=== PATIENT | female | born 1950 | race Caucasian/White ===

== ENCOUNTER → 2019-04-25 | Day surgery (SDC) | payer MEDICARE, BC ==
[~2019-04-25] MED LIST: Lactated Ringers 1,000 ML IV SCH; Propofol 200 MG/20 ML SDV IV ONE
[2019-04-25 12:02] VITALS: BP 127/61; PULSE 67
--- NOTE | 2019-04-25 15:29 | OR ---
DATE OF OPERATION: 04/25/2019 PREOPERATIVE DIAGNOSIS: SCREENING COLONOSCOPY. POSTOPERATIVE DIAGNOSIS: SCREENING COLONOSCOPY. SURGEON: Logan Gudino MD PROCEDURE: FULL-LENGTH COLONOSCOPY. ANESTHESIA: MAC. COMPLICATIONS: None. SPECIMEN: None. FINDINGS: 1. Full-length colonoscopy. 2. [id number] sigmoid diverticulosis. 3. Perianal skin tags with hemorrhoid disease. RECOMMENDATIONS: Routine colonoscopy every 10 years. INDICATIONS: The patient was seen for routine screen as it had been 10 years since her last scope. DESCRIPTION OF PROCEDURE: The patient was prepped and draped, placed in the left lateral decubitus position. A lubricated Olympus colonoscope was inserted and advanced to the cecum. We were able to directly visualize the ileocecal valve, palpate, and visualize the light in the right lower quadrant. Bowel prep was excellent. Upon withdrawal, the entire right transverse and descending colons were completely benign. [id number] diverticular disease in the sigmoid. No other polyps, masses, ulceration, or bleeding sites. No vascular abnormalities or signs of colitis. The rectal vault was benign. Retroflexion showed some perianal skin tags and hemorrhoidal disease, otherwise negative. Air was suctioned, scope removed without complication. MEENA/AGUS /[id number]
== END ==
LOC: CC.SDS 08:26
PROVIDERS: ATTEND Family Medicine
DX: Z12.11 Encounter for screening for malignant neoplasm of colon (principal); K57.30 Diverticulosis of large intestine without perforation or abscess without bleeding; K64.4 Residual hemorrhoidal skin tags; K64.9 Unspecified hemorrhoids; K21.9 Gastro-esophageal reflux disease without esophagitis; I48.91 Unspecified atrial fibrillation; E78.5 Hyperlipidemia, unspecified; I10 Essential (primary) hypertension; M19.90 Unspecified osteoarthritis, unspecified site; Z79.82 Long term (current) use of aspirin; Z79.899 Other long term (current) drug therapy; Z79.01 Long term (current) use of anticoagulants
CPT/HCPCS: G0121; J2704; J7120

== ENCOUNTER 2019-05-14 13:56 | Observation (INO) | payer MEDICARE, BC ==
[2019-05-14] MEDS ORDERED: Sodium Chloride 0.9% 10 ML Syringe FLUSH PRN (14:30)
[2019-05-14] MEDS ORDERED: Acetaminophen 325 MG Tab PO PRN (14:30)
[2019-05-14 14:54] LABS: CHLORIDE,CL 102 mEq/L (98-106); SODIUM,NA 138 mEq/L (136-145)
[2019-05-14] MEDS: Diltiazem 120 MG Cap.CD PO SCH (15:04)
[2019-05-14] MEDS ORDERED: traMADol 50 MG Tab PO PRN (15:12)
[2019-05-14] MEDS ORDERED: Betamethasone Dipropionate/Clotrimazole 0.05-1% Crm 15 GM Tube TOP PRN (15:12)
[2019-05-14] MEDS ORDERED: buPROPion 150 MG Tab.ER PO SCH (20:00)
[2019-05-14] MEDS ORDERED: traZODone 50 MG Tab PO SCH (20:00)
[2019-05-14] MEDS ORDERED: Aspirin 81 MG Tab.EC PO SCH (20:00)
[2019-05-14] MEDS: Apixaban 5 MG Tab PO SCH ×2 (22:04→22:57)
[2019-05-14] MEDS: Acetaminophen 500 MG Tab PO SCH (22:09)
[2019-05-14] MEDS: Metoprolol Tartrate 50 MG Tab PO SCH (22:09)
[2019-05-15] MEDS: Acetaminophen 500 MG Tab PO SCH (07:32)
[2019-05-15] MEDS: Diltiazem 120 MG Cap.CD PO SCH (07:32)
[2019-05-15 07:35] VITALS: BP 123/68; PULSE 68
[2019-05-15] MEDS ORDERED: Sertraline 25 MG Tab PO SCH (08:00)
[2019-05-15] MEDS ORDERED: Pantoprazole 40 MG Tab.CR PO SCH (08:00)
[2019-05-15] MEDS ORDERED: Non-Formulary Medication 1 Each (Exemestane [Exemestane] 25 MG) PO SCH (08:00)
[2019-05-15] MEDS: Apixaban 5 MG Tab PO SCH (08:12)
[2019-05-15] MEDS: Metoprolol Tartrate 50 MG Tab PO SCH (08:13)
--- NOTE | 2019-05-15 09:28 | PCM.DCSUM1 ---
Discharge Summary - Hospital Course Free Text/Narrative:: pt was admitted with A-fib with a RVR, was started on Cardizem which controlled her rate, with ambulation pts rate has been controlled.no c/o cp or sob, no calf pain redness or swelling, no other sx, advised "I feel better now" Diagnosis: Stroke: No - Discharge Data Discharge Date: 05/15/19 Discharge Disposition: Home, Self-Care 01 Condition: Good - Referral to Home Health Primary Care Physician: Brody Cruz PA-C - Discharge Diagnosis/Problem(s) (1) Atrial fibrillation with rapid ventricular response SNOMED Code(s): 941805556372509 ICD Code: I48.91 - UNSPECIFIED ATRIAL FIBRILLATION Status: Acute Priority : High Current Visit: Yes - Patient Instructions Diet: Heart Healthy Diet Activity: As Tolerated Driving: May Drive Today Showering/Bathing: May Shower Other/Special Instructions: rest. cardizem 1 x a day. continue all of your current medications. follow up in the clinic this coming week. return to the ER sooner if worse or problems - Discharge Plan *PRESCRIPTION DRUG MONITORING PROGRAM REVIEWED*: Not Applicable *COPY OF PRESCRIPTION DRUG MONITORING REPORT IN PATIENT GIGI: Not Applicable Prescriptions/Med Rec: Diltiazem [Cardizem CD] 120 mg PO DAILY 30 Days #30 cap.cd Home Medications: Home Meds Metoprolol Tartrate [Lopressor] 50 mg PO BID 08/04/13 [History] Pantoprazole Sodium 40 mg PO DAILY 08/04/13 [History] buPROPion [buPROPion XL] 300 mg PO BEDTIME 08/04/13 [History] Aspirin [Low Dose Aspirin EC] 81 mg PO BEDTIME 04/26/14 [History] Cholecalciferol (Vitamin D3) [Vitamin D3] 2,000 unit PO BID 04/26/14 [History] traZODone HCl [Trazodone HCl] 50 mg PO BEDTIME 04/26/14 [History] Apixaban [Eliquis] 5 mg PO BID 01/16/18 [History] Calcium Carb/D3/Magnesium/Zinc [Benoit Mag Zinc + D3] 1 each PO BID 01/16/18 [ History] Fish Oil/[place]-3 Fatty Acids [Fish Oil 1,000 MG] 1 cap PO DAILY 01/16/18 [ History] Sertraline HCl 50 mg PO DAILY 01/16/18 [History] traMADol HCl [Ultram] 50 - 100 mg PO Q6H PRN 01/16/18 [History] Clotrimazole/Betamethasone Dip [Lotrisone Cream] 1 applic TP BID PRN 04/23/19 [ History] Diclofenac Sodium [Voltaren 1% Gel] 1 applic TP QID PRN 04/23/19 [History] Exemestane 25 mg PO DAILY 04/23/19 [History] Diltiazem [Cardizem CD] 120 mg PO DAILY 30 Days #30 cap.cd 05/15/19 [Rx] Oxygen Therapy Mode: Room Air Patient Handouts: Atrial Fibrillation, [id number] - Discharge Summary/Plan Comment DC Time >30 min.: No Discharge Summary/Plan Comment: will dc home A-Fib now has a controlled rate, will continue cardizem, rx has been sent to pts pharmacy, will have pt f/u with pcp this week and return to ER prn. will eliminate caffeine from diet - Patient Data Vitals - Most Recent: Last Vital Signs Temp 37.1 C 05/15/19 08:00 Pulse 68 05/15/19 07:32 Resp 18 05/15/19 08:00 BP 123/68 05/15/19 08:00 Pulse Ox 99 05/15/19 08:00 Weight - Most Recent: 83.552 kg Lab Results - Last 24 hrs: Laboratory Results - last 24 hr 05/14/19 05/14/19 05/14/19 Range/Units 14:22 14:22 14:22 WBC 4.5 L (5.0-10.0) 10^3/uL RBC 4.28 (4.00-5.50) 10^6/uL Hgb 13.4 (12.0-16.0) g/dL Hct 39.1 (37.0-47.0) % MCV 91.4 (82.0-94.0) fL MCH 31.3 (27.0-32.0) pg MCHC 34.3 (33.0-38.0) g/dL RDW Coeff of Mick 12.9 (11.0-15.0) % Plt Count 187 (150-400) 10^3/uL Neut % (Auto) 54.2 (35-85) % Lymph % (Auto) 29.5 (10-55) % [place] % (Auto) 10.8 (0-16) % Eos % (Auto) 4.8 (0-5) % Baso % (Auto) 0.7 (0-3) % Neut # (Auto) 2.46 (1.80-7.00) 10^3/uL Lymph # (Auto) 1.34 (1.00-4.80) 10^3/uL [place] # (Auto) 0.49 (0.00-0.80) 10^3/uL Eos # (Auto) 0.22 (0.00-0.45) 10^3/uL Baso # (Auto) 0.03 10^3/uL PT 10.1 (9.7-12.3) SEC INR 0.98 (0.92-1.18) Sodium 138 (136-145) mEq/L Potassium 4.2 (3.5-5.0) mEq/L Chloride 102 (98-106) mEq/L Carbon Dioxide 25 (21-32) mmol/L BUN 21 H (7-18) mg/dL Creatinine 0.8 (0.6-1.0) mg/dL Est Cr Clr Drug Dosing TNP Estimated GFR (MDRD) > 60 (>=60) mL/min Glucose 100 H (75-99) mg/dL Calcium 9.5 (8.4-10.1) mg/dL Creatine Kinase 62 (21-215) U/L Troponin I < 0.017 (0.00-0.06) ng/mL Urine Color (YELLOW) Urine Appearance (CLEAR) Urine pH (4.5-8.0) Ur Specific [place] (1.003-1.020) Urine Protein (NEGATIVE) mg/dL Urine Glucose (UA) (NEGATIVE) mg/dL Urine Ketones (NEGATIVE) mg/dL Urine Occult Blood (NEGATIVE) Urine Nitrite (NEGATIVE) Urine Bilirubin (NEGATIVE) Urine Urobilinogen (0.2-1.0) EU/dL Ur Leukocyte Esterase (NEGATIVE) 05/14/19 Range/Units 14:22 WBC (5.0-10.0) 10^3/uL RBC (4.00-5.50) 10^6/uL Hgb (12.0-16.0) g/dL Hct (37.0-47.0) % MCV (82.0-94.0) fL MCH (27.0-32.0) pg MCHC (33.0-38.0) g/dL RDW Coeff of Mick (11.0-15.0) % Plt Count (150-400) 10^3/uL Neut % (Auto) (35-85) % Lymph % (Auto) (10-55) % [place] % (Auto) (0-16) % Eos % (Auto) (0-5) % Baso % (Auto) (0-3) % Neut # (Auto) (1.80-7.00) 10^3/uL Lymph # (Auto) (1.00-4.80) 10^3/uL [place] # (Auto) (0.00-0.80) 10^3/uL Eos # (Auto) (0.00-0.45) 10^3/uL Baso # (Auto) 10^3/uL PT (9.7-12.3) SEC INR (0.92-1.18) Sodium (136-145) mEq/L Potassium (3.5-5.0) mEq/L Chloride (98-106) mEq/L Carbon Dioxide (21-32) mmol/L BUN (7-18) mg/dL Creatinine (0.6-1.0) mg/dL Est Cr Clr Drug Dosing Estimated GFR (MDRD) (>=60) mL/min Glucose (75-99) mg/dL Calcium (8.4-10.1) mg/dL Creatine Kinase (21-215) U/L Troponin I (0.00-0.06) ng/mL Urine Color Yellow (YELLOW) Urine Appearance Clear (CLEAR) Urine pH 6.5 (4.5-8.0) Ur Specific [place] 1.010 (1.003-1.020) Urine Protein Negative (NEGATIVE) mg/dL Urine Glucose (UA) Negative (NEGATIVE) mg/dL Urine Ketones Negative (NEGATIVE) mg/dL Urine Occult Blood Negative (NEGATIVE) Urine Nitrite Negative (NEGATIVE) Urine Bilirubin Negative (NEGATIVE) Urine Urobilinogen 0.2 (0.2-1.0) EU/dL Ur Leukocyte Esterase Negative (NEGATIVE) Med Orders - Current: Current Medications Acetaminophen (Tylenol) 650 mg PO Q4H PRN PRN Reason: Pain (Mild 1-3)/fever Acetaminophen (Tylenol Extra Strength) 1,000 mg PO TID [facility] Last Admin: 05/15/19 07:32 Dose: 1,000 mg Apixaban (Eliquis) 5 mg PO BID [facility] Last Admin: 05/15/19 08:12 Dose: Not Given Aspirin (Halfprin) 81 mg PO BEDTIME [facility] Last Admin: 05/14/19 22:09 Dose: Not Given Betamethasone/Clotrimazole (Lotrisone) 0 gm TOP BID PRN PRN Reason: Rash Bupropion HCl (Wellbutrin Xl) 300 mg PO BEDTIME [facility] Last Admin: 05/14/19 22:10 Dose: Not Given Diltiazem HCl (Cardizem Cd) 120 mg PO DAILY [facility] Last Admin: 05/15/19 07:32 Dose: 120 mg Metoprolol Tartrate (Lopressor) 50 mg PO BID [facility] Last Admin: 05/15/19 08:13 Dose: Not Given Non-Formulary Medication (Exemestane [Exemestane]) 25 mg PO DAILY [facility] Pantoprazole Sodium (Protonix) 40 mg PO DAILY [facility] Last Admin: 05/15/19 08:13 Dose: Not Given Sertraline HCl (Zoloft) 50 mg PO DAILY [facility] Last Admin: 05/15/19 08:13 Dose: Not Given Sodium Chloride (Saline Flush) 10 ml FLUSH ASDIRECTED PRN PRN Reason: Keep Vein Open Tramadol HCl (Ultram) 50 - 100 mg PO Q6H PRN PRN Reason: Pain Trazodone HCl (Trazodone) 50 mg PO BEDTIME [facility] Last Admin: 05/14/19 22:09 Dose: Not Given
== END 2019-05-15 10:02 | disposition home or self-care (01) ==
LOC: CC.FCMC 13:56 → UNDOADMOB 14:05 → CC.MS 14:05
PROVIDERS: ADMIT Physician Assistant Medical; ATTEND Family Medicine
DX: I48.0 Paroxysmal atrial fibrillation (principal); I10 Essential (primary) hypertension; E78.5 Hyperlipidemia, unspecified; K21.9 Gastro-esophageal reflux disease without esophagitis; C50.919 Malignant neoplasm of unspecified site of unspecified female breast; F32.9 Major depressive disorder, single episode, unspecified; F41.9 Anxiety disorder, unspecified; G47.30 Sleep apnea, unspecified; G47.00 Insomnia, unspecified; M19.90 Unspecified osteoarthritis, unspecified site; Z79.82 Long term (current) use of aspirin; Z79.01 Long term (current) use of anticoagulants; Z79.899 Other long term (current) drug therapy; Z86.73 Personal history of transient ischemic attack (TIA), and cerebral infarction without residual deficits
CPT/HCPCS: 36415; 80048; 81003; 82550; 84484; 85025; 85610; 93005; A9270-GY; G0378

== ENCOUNTER 2019-05-23 09:30 | Emergency (ER) | payer OTHER, MEDICARE, BC ==
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
[2019-05-23 10:07] LABS: CHLORIDE,CL 101 mEq/L (98-106); SODIUM,NA 137 mEq/L (136-145)
[2019-05-23 10:41] VITALS: BP 146/84; PULSE 118
== END 2019-05-23 11:50 | disposition home or self-care (01) ==
LOC: CC.ED 09:30
DX: S80.02XA Contusion of left knee, initial encounter (principal); I10 Essential (primary) hypertension; Z79.899 Other long term (current) drug therapy; V89.2XXA Person injured in unspecified motor-vehicle accident, traffic, initial encounter
CPT/HCPCS: 36415; 70450; 71046; 72125; 72170; 73560-RT; 73590-LT; 80053; 82150; 83605; 85025; 85610; 99284-25

== ENCOUNTER 2021-06-04 07:42 | Observation (INO) | payer MEDICARE, BC ==
[2021-06-04] MEDS ORDERED: Ketorolac 30 MG/ML SDV IM ONE (08:37)
--- NOTE | 2021-06-04 09:19 | EDM.PDOC ---
ED HPI GENERAL MEDICAL PROBLEM - General Chief Complaint: General Stated Complaint: knee pain - right. Kneecap surgery on . Temp 100 at home. Time Seen by Provider: 06/04/21 08:20 Source of Information: Reports: Patient, RN History Limitations: Reports: No Limitations - History of Present Illness INITIAL COMMENTS - FREE TEXT/NARRATIVE: Right knee surgery . Painful even after two oxycodone pills. Onset: Other (last ) Duration: Constant, Getting Worse Location: Reports: Other (right knee) Front/Back Body Image: 1 - right knee Quality: Reports: Ache Severity: Moderate Improves with: Reports: None Worsens with: Reports: Movement Context: Reports: Other (surgery) Treatments PROJECT ADMIN: Reports: Other Medication(s) (oxycodone) Right Knee Pain Score (Numeric/FACES): 7 - Related Data Allergies Allergy/AdvReac Type Severity Reaction Status Date / Time No Known Allergies Allergy Verified 06/04/21 07:48 Home Meds: Home Meds Metoprolol Tartrate [Lopressor] 25 mg PO BID 08/04/13 [History] Pantoprazole Sodium 40 mg PO DAILY 08/04/13 [History] buPROPion [buPROPion XL] 150 mg PO BEDTIME 08/04/13 [History] Aspirin [Low Dose Aspirin EC] 81 mg PO BEDTIME 04/26/14 [History] Cholecalciferol (Vitamin D3) [Vitamin D3] 2,000 unit PO BID 04/26/14 [History] traZODone HCl [Trazodone HCl] 50 mg PO BEDTIME 04/26/14 [History] Apixaban [Eliquis] 5 mg PO BID 01/16/18 [History] Calcium Carb/D3/Magnesium/Zinc [Benoit Mag Zinc + D3] 1 each PO BID 01/16/18 [History] traMADol HCl [Ultram] 50 - 100 mg PO Q6H PRN 01/16/18 [History] Clotrimazole/Betamethasone Dip [Lotrisone Cream] 1 applic TP BID PRN 04/23/19 [History] Diclofenac Sodium [Voltaren 1% Gel] 1 applic TP QID PRN 04/23/19 [History] Exemestane 25 mg PO DAILY 04/23/19 [History] Acetaminophen 650 mg PO Q6H PRN 06/04/21 [History] Celecoxib [CeleBREX] 200 mg PO BID 06/04/21 [History] Flecainide [Tambocor] 50 mg PO Q12H 06/04/21 [History] Lutein/Zeaxanthin [Lutein-Zeaxanthin 20-1 mg Sfgl] 1 cap PO DAILY 06/04/21 [History] PARoxetine [Paxil] 20 mg PO DAILY 06/04/21 [History] Sennosides/Docusate Sodium [Senna-Docusate Sodium Tablet] 1 tab PO BID 06/04/21 [History] atorvaSTATin [Lipitor] 10 mg PO BEDTIME 06/04/21 [History] oxyCODONE 5 - 10 mg PO Q4H 06/04/21 [History] Past Medical History Cardiovascular History: Reports: Afib, Blood Clots/VTE/DVT, High Cholesterol, Hypertension Gastrointestinal History: Reports: GERD GEAR NICKER History: Reports: Other GEAR NICKER History: YEAST INF Musculoskeletal History: Reports: Arthritis Neurological History: Reports: CVA Psychiatric History: Reports: Anxiety, Depression Endocrine/Metabolic History: Reports: Vitamin D Deficiency Hematologic History: Reports: B12 Deficiency Oncologic (Cancer) History: Reports: Breast - Infectious Disease History Infectious Disease History: Reports: Other (See Below) Other Infectious Disease History: Staph infection in hand - Past Surgical History HEENT Surgical History: Reports: Naso-Sinus Surgery Female Surgical History: Reports: Section Musculoskeletal Surgical History: Reports: Knee Replacement Oncologic Surgical History: Reports: Biopsy of Breast, Lumpectomy Social & Family History - Family History Family Medical History: No Pertinent Family History - Caffeine Use Caffeine Use: Reports: Coffee - Living Situation & Occupation Living situation: Reports: , with Spouse Occupation: Employed ED ROS GENERAL - Review of Systems Review Of Systems: Comprehensive ROS is negative, except as noted in HPI. ED EXAM, GENERAL - Physical Exam Exam: See Below Exam Limited By: No Limitations (pain ROM R knee) General Appearance: Alert, Mild Distress Nose: Normal Mucosa, No Blood Throat/Mouth: Normal Voice, No Airway Compromise Head: Atraumatic, Normocephalic Neck: Supple Respiratory/Chest: No Respiratory Distress, Lungs Clear, Normal Breath Sounds Cardiovascular: Normal Peripheral Pulses, Regular Rate, Rhythm GI/Abdominal: Normal Bowel Sounds, Soft, Non-Tender, No Distention Extremities: Normal Capillary Refill, Leg Pain, Limited Range of Motion, Increased Warmth, Other (wartmth and redness medial aspect right knee) Neurological: Alert, Oriented, Normal Cognition Psychiatric: Normal Affect, Normal Mood, Tearful, Other (mildly anxious due to pain) Skin Exam: Warm, Dry, Increased Warmth (right knee), Wound/Incision (right knee - approximated well) Course - Vital Signs Last Recorded V/S: Last Vital Signs Temp 98 F 06/04/21 08:55 Pulse 87 06/04/21 08:55 Resp 18 06/04/21 08:55 BP 128/62 06/04/21 08:55 Pulse Ox 97 06/04/21 08:55 - Orders/Labs/Meds Orders: Active Orders 24 hr Category Date Time Status Knee 1V or 2V Rt [CR] Stat Exams 06/04/21 08:24 Taken Labs: Laboratory Tests 06/04/21 Range/Units 09:13 WBC 4.5 (4.0-11.0) 10^3/uL RBC 3.24 L (4.00-5.50) x10^6/uL Hgb 10.0 L (12.0-16.0) g/dL Hct 30.1 L (37.0-47.0) % MCV 92.9 (83.0-97.0) fL MCH 30.9 (27.0-32.0) pg MCHC 33.2 (32.0-36.0) g/dL RDW Coeff of Mick 12.8 (11.0-15.0) % Plt Count 134 L (150-400) 10^3/uL Immature Gran % (Auto) 0.2 (0.0-4.9) % Neut % (Auto) 68.6 (41-71) % Lymph % (Auto) 17.3 L (24-44) % Winkler % (Auto) 8.1 (0-10) % Eos % (Auto) 5.6 (0-6) % Baso % (Auto) 0.2 (0-1) % Neut # (Auto) 3.05 (1.80-8.00) x10^3/uL Lymph # (Auto) 0.77 (0.60-5.00) 10^3/uL Winkler # (Auto) 0.36 (0.00-1.50) 10^3/uL Eos # (Auto) 0.25 (0.00-1.50) 10^3/uL Baso # (Auto) 0.01 (0.00-0.50) 10^3/uL Immature Gran # (Auto) 0.01 (0.00-0.49) 10^3/uL Meds: Medications Discontinued Medications Generic Name Dose Route Start Last Admin Trade Name Freq PRN Reason Stop Dose Admin Ketorolac Tromethamine 30 mg 06/04/21 08:37 06/04/21 08:49 Ketorolac 30 Mg/Ml Sdv IM 06/04/21 08:38 30 mg ONETIME ONE Administration - Re-Assessments/Exams Free Text/Narrative Re-Assessment/Exam: 06/04/21 09:25 Responded favorably to ketorolac. Pain from 7 to 3. 06/04/21 14:44 Spoke with raj Mendez electron gun inspector at [facility]. Will admit to obs for now and she can f/u with surgeon on Sunday. Will admit for pain control and inability to perform ADLs. Will give IV ketorolac. Departure - Departure Time of Disposition: 13:30 Disposition: Refer to Observation Condition: Good Clinical Impression: Impaired mobility and ADLs Right knee pain Qualifiers: Chronicity: acute Qualified Code(s): M25.561 - Pain in right knee - Discharge Information Referrals: Logan Gudino MD [Primary Care Provider] - Forms: ED Department Discharge Sepsis Event Note (ED) - Evaluation Sepsis Screening Result: No Definite Risk - Focused Exam Vital Signs: Vital Signs Temp Pulse Resp BP Pulse Ox 06/04/21 08:55 98 F 87 18 128/62 97 - Problem List & Annotations (1) Impaired mobility and ADLs SNOMED Code(s): 886658265, 421411213 Code(s): Z74.09 - OTHER REDUCED MOBILITY; Z78.9 - OTHER SPECIFIED HEALTH STATUS Status: Acute Current Visit: Yes (2) Right knee pain SNOMED Code(s): 4709140221 Code(s): M25.561 - PAIN IN RIGHT KNEE Status: Acute Current Visit: Yes Qualifiers: Chronicity: acute Qualified Code(s): M25.561 - Pain in right knee - My Orders Last 24 Hours: My Active Orders 06/04/21 08:24 Knee 1V or 2V Rt [CR] Stat - Assessment/Plan Last 24 Hours: My Active Orders 06/04/21 08:24 Knee 1V or 2V Rt [CR] Stat
[2021-06-04] MEDS ORDERED: Metoprolol Tartrate 25 MG Tab PO SCH (15:15)
[2021-06-04] MEDS ORDERED: Sodium Chloride 0.9% 10 ML Syringe FLUSH PRN (16:33)
[2021-06-04] MEDS ORDERED: FLECAINIDE 50 MG PO SCH (16:33)
[2021-06-04] MEDS ORDERED: Ondansetron 4 MG Tab.DIS PO PRN (16:33)
[2021-06-04] MEDS ORDERED: Acetaminophen 325 MG Tab PO PRN (16:33)
[2021-06-04] MEDS: Ketorolac 30 MG/ML SDV IVPUSH PRN (17:01)
[2021-06-04] MEDS: Apixaban 5 MG Tab **OWN MED PO SCH (19:55)
[2021-06-04] MEDS: FLECAINIDE 50 MG PO SCH (19:56)
[2021-06-04] MEDS: Aspirin 81 MG Tab.EC PO SCH (19:56)
[2021-06-04] MEDS: atorvaSTATin 10 MG Tab **OWN MED PO SCH (19:56)
[2021-06-04] MEDS: Cholecalciferol (Vitamin D3) 25 MCG Tab PO SCH (19:57)
[2021-06-04] MEDS: traZODone 50 MG Tab **OWN MED PO SCH (19:57)
[2021-06-04] MEDS: Metoprolol Tartrate 25 MG Tab **OWN MED PO SCH (19:57)
[2021-06-04] MEDS: BUPROPION 150 MG PO SCH (19:58)
[2021-06-04] MEDS ORDERED: Calcium Carbonate/Magnesium Oxide/Zinc Oxide Tab PO SCH (20:00)
[2021-06-04] MEDS: oxyCODONE 5 MG Tab **OWN MED PO PRN (20:01)
[2021-06-05] MEDS: oxyCODONE 5 MG Tab **OWN MED PO PRN ×3 (03:22→18:04)
[2021-06-05] MEDS: Apixaban 5 MG Tab **OWN MED PO SCH ×2 (07:45→19:23)
[2021-06-05] MEDS: Calcium Carbonate/Magnesium Oxide/Zinc Oxide Tab PO SCH (07:45)
[2021-06-05] MEDS: [UNRECOGNIZED DRUG - OTHER] PO SCH (07:45)
[2021-06-05] MEDS: Metoprolol Tartrate 25 MG Tab **OWN MED PO SCH ×2 (07:46→19:25)
[2021-06-05] MEDS: FLECAINIDE 50 MG PO SCH ×2 (07:46→19:23)
[2021-06-05] MEDS: Cholecalciferol (Vitamin D3) 25 MCG Tab PO SCH ×2 (07:47→19:22)
[2021-06-05] MEDS: Pantoprazole 40 MG Tab.CR PO SCH (07:47)
[2021-06-05] MEDS: PAROXETINE 20 MG PO SCH (07:47)
[2021-06-05] MEDS: Ketorolac 30 MG/ML SDV IVPUSH PRN (08:46)
--- NOTE | 2021-06-05 10:39 | PCM.PN ---
- General Info Date of Service: 06/05/21 Admission Dx/Problem (Free Text): Right Knee post Op Pain Impaired Mobility Inability to Perform ADLs Subjective Update: Admitted yesterday through ER. The ortho manager loss prevention (Romana) was called yesterday and advised to f/u on Sunday with her surgeon. She states the IV ketorolac is really helpful. States does not think she can manage at home just yet. Functional Status: Reports: Pain Controlled, Tolerating Diet - Review of Systems General: Reports: No Symptoms HEENT: Reports: No Symptoms Pulmonary: Reports: No Symptoms Cardiovascular: Reports: No Symptoms Gastrointestinal: Reports: No Symptoms Genitourinary: Reports: No Symptoms Musculoskeletal: Reports: Leg Pain, Joint Pain (right knee pain) Skin: Reports: No Symptoms Neurological: Reports: No Symptoms Psychiatric: Reports: No Symptoms - Patient Data Vitals - Most Recent: Last Vital Signs Temp 97.6 F 06/05/21 07:48 Pulse 65 06/05/21 07:48 Resp 16 06/05/21 07:48 BP 129/58 L 06/05/21 07:48 Pulse Ox 95 06/05/21 07:48 Weight - Most Recent: 190 lb Med Orders - Current: Current Medications Acetaminophen (Acetaminophen 325 Mg Tab) 650 mg PO Q6H PRN PRN Reason: Pain Apixaban (Apixaban 5 Mg Tab Own Med) 5 mg PO BID [facility] Last Admin: 06/05/21 07:45 Dose: 5 mg Documented by: Aspirin (Aspirin 81 Mg Tab.Ec) 81 mg PO BEDTIME [facility] Last Admin: 06/04/21 19:56 Dose: 81 mg Documented by: Atorvastatin Calcium (Atorvastatin 10 Mg Tab Own Med) 10 mg PO BEDTIME [facility] Last Admin: 06/04/21 19:56 Dose: 10 mg Documented by: Bupropion HCl (Bupropion 150 Mg Tab.Er Own Med) 150 mg PO BEDTIME [facility] Last Admin: 06/04/21 19:58 Dose: 150 mg Documented by: Calcium/Magnesium/Zinc (Calcium Carbonate/Magnesium Oxide/Zinc Oxide Tab) 1 tab PO DAILY [facility] Last Admin: 06/05/21 07:45 Dose: 1 tab Documented by: Cholecalciferol (Cholecalciferol (Vitamin D3) 25 Mcg Tab) 50 mcg PO BID [facility] Last Admin: 06/05/21 07:47 Dose: 50 mcg Documented by: Ketorolac Tromethamine (Ketorolac 30 Mg/Ml Sdv) 30 mg IVPUSH Q8H PRN PRN Reason: Pain (moderate 4-6) Stop: 06/09/21 15:17 Last Admin: 06/05/21 08:46 Dose: 30 mg Documented by: Metoprolol Tartrate (Metoprolol Tartrate 25 Mg Tab Own Med) 25 mg PO [facility] Last Admin: 06/05/21 07:46 Dose: 25 mg Documented by: Exemastane 25 Mg (Own Med) 0 mg PO DAILY [facility] Last Admin: 06/05/21 07:45 Dose: 25 mg Documented by: Non-Formulary Medication (Lutein/Zeaxanthin [Lutein-Zeaxanthin 20-1 Mg Sfgl]) 1 cap PO DAILY [facility] Flecainide 50 Mg (Own Med) 0 mg PO [facility] Last Admin: 06/05/21 07:46 Dose: 50 mg Documented by: Ondansetron HCl (Ondansetron 4 Mg Tab.Dis) 4 mg PO Q4H PRN PRN Reason: nausea, able to take PO Oxycodone HCl (Oxycodone 5 Mg Tab Own Med) 5 mg PO Q4H PRN PRN Reason: Pain (severe 7-10) Last Admin: 06/05/21 07:55 Dose: 5 mg Documented by: Pantoprazole Sodium (Pantoprazole 40 Mg Tab.Cr) 40 mg PO DAILY [facility] Last Admin: 06/05/21 07:47 Dose: 40 mg Documented by: Paroxetine HCl (Paroxetine 20 Mg Tab Own Med) 20 mg PO DAILY [facility] Last Admin: 06/05/21 07:47 Dose: 20 mg Documented by: Senna/Docusate Sodium (Docusate Sodium/Sennosides 50-8.6 Mg Tab) 1 tab PO BID [facility] Last Admin: 06/05/21 07:47 Dose: 1 tab Documented by: Sodium Chloride (Sodium Chloride 0.9% 10 Ml Syringe) 10 ml FLUSH ASDIRECTED PRN PRN Reason: Keep Vein Open Trazodone HCl (Trazodone 50 Mg Tab Own Med) 50 mg PO BEDTIME [facility] Last Admin: 06/04/21 19:57 Dose: 50 mg Documented by: Discontinued Medications Calcium/Magnesium/Zinc (Calcium Carbonate/Magnesium Oxide/Zinc Oxide Tab) 1 tab PO BID [facility] Last Admin: 06/04/21 19:55 Dose: Not Given Documented by: Ketorolac Tromethamine (Ketorolac 30 Mg/Ml Sdv) 30 mg IM ONETIME ONE Stop: 06/04/21 08:38 Last Admin: 06/04/21 08:49 Dose: 30 mg Documented by: Metoprolol Tartrate (Metoprolol Tartrate 25 Mg Tab) 25 mg PO Q12H [facility] Last Admin: 06/04/21 16:39 Dose: Not Given Documented by: Flecainide 50 Mg (Own Med) 0 mg PO Q12H [facility] Last Admin: 06/04/21 18:50 Dose: Not Given Documented by: - Exam General: Alert, Oriented HEENT: EOMI, Mucous Membr. Moist/Sully Neck: Supple Lungs: Clear to Auscultation, Normal Respiratory Effort Cardiovascular: Regular Rate, Regular Rhythm GI/Abdominal Exam: Normal Bowel Sounds, Soft, Non-Tender, No Distention Back Exam: Normal Inspection, Full Range of Motion Extremities: Normal Capillary Refill, Limited Range of Motion, Increased Warmth, Other (Right knee with mild swelling, mld erythema, slighlty warmer than left) Skin: Warm, Dry Wound/Incisions: Healing Well, Dressing Dry and Intact, No Drainage Neurological: No New Focal Deficit Psy/Mental Status: Alert, Normal Affect, Normal Mood - Patient Data Result Diagrams: 06/04/21 09:13 Sepsis Event Note - Evaluation Sepsis Screening Result: No Definite Risk - Focused Exam Vital Signs: Vital Signs Temp Pulse Pulse Resp BP BP Pulse Ox 06/05/21 07:48 97.6 F 65 16 129/58 L 95 06/05/21 07:46 65 129/58 L 06/05/21 03:24 97.6 F 66 16 147/73 H 96 06/04/21 23:30 97.1 F 63 16 122/57 L 94 L - Problem List & Annotations (1) Impaired mobility and ADLs SNOMED Code(s): 091272316, 240349180 Code(s): Z74.09 - OTHER REDUCED MOBILITY; Z78.9 - OTHER SPECIFIED HEALTH STATUS Status: Acute Current Visit: Yes (2) Right knee pain SNOMED Code(s): 2268850796 Code(s): M25.561 - PAIN IN RIGHT KNEE Status: Acute Current Visit: Yes Qualifiers: Chronicity: acute Qualified Code(s): M25.561 - Pain in right knee - Problem List Review Problem List Initiated/Reviewed/Updated: Yes - My Orders Last 24 Hours: My Active Orders 06/04/21 15:10 Resuscitation Status Routine 06/04/21 15:17 Ketorolac [Toradol] 30 mg IVPUSH Q8H PRN 06/04/21 16:33 Acetaminophen [TylenoL] 650 mg PO Q6H PRN Ondansetron [Zofran ODT] 4 mg PO Q4H PRN Sodium Chloride 0.9% [Saline Flush] 10 ml FLUSH ASDIRECTED PRN oxyCODONE 5 mg PO Q4H PRN 06/04/21 16:33 Patient Status [ADT] Routine May Shower [RC] .PRN Oxygen Therapy [RC] .PRN Up With Assistance [RC] .PRN Vital Signs [RC] 0000,0400,0800,1200,1600,2000 Saline Lock Insert [OM.PC] Routine 06/04/21 Dinner Regular Diet [DIET] 06/04/21 20:00 Apixaban [Eliquis] 5 mg PO BID Aspirin [Halfprin] 81 mg PO BEDTIME Cholecalciferol (Vitamin D3) [Vitamin D3] 50 mcg PO BID Docusate Sodium/Sennosides [Senna Plus] 1 tab PO BID Flecainide [Tambocor] 0 mg PO 799,1999 Metoprolol Tartrate [Lopressor] 25 mg PO 0800,1999 atorvaSTATin [Lipitor] 10 mg PO BEDTIME buPROPion [Wellbutrin XL] 150 mg PO BEDTIME traZODone 50 mg PO BEDTIME 06/05/21 08:00 Calcium/Magnesium/Zinc [Calcium & Magnesium plus Zinc] 1 tab PO DAILY Exemestane [Exemestane] 0 mg PO DAILY Lutein/Zeaxanthin [Lutein-Zeaxanthin 20-1 mg Sfgl] 1 cap PO DAILY PARoxetine [Paxil] 20 mg PO DAILY Pantoprazole [ProTONIX] 40 mg PO DAILY - Plan Plan:: Continue IV ketorolac for now. Call surgeon's office in AM.
[2021-06-05] MEDS: traZODone 50 MG Tab **OWN MED PO SCH (19:22)
[2021-06-05] MEDS: BUPROPION 150 MG PO SCH (19:23)
[2021-06-05] MEDS: Aspirin 81 MG Tab.EC PO SCH (19:25)
[2021-06-05] MEDS: atorvaSTATin 10 MG Tab **OWN MED PO SCH (19:25)
[2021-06-06] MEDS: oxyCODONE 5 MG Tab **OWN MED PO PRN ×2 (00:51→08:30)
[2021-06-06] MEDS: Metoprolol Tartrate 25 MG Tab **OWN MED PO SCH (08:27)
[2021-06-06] MEDS: Apixaban 5 MG Tab **OWN MED PO SCH (08:28)
[2021-06-06] MEDS: PAROXETINE 20 MG PO SCH (08:28)
[2021-06-06] MEDS: FLECAINIDE 50 MG PO SCH (08:31)
[2021-06-06] MEDS: Pantoprazole 40 MG Tab.CR PO SCH (08:31)
[2021-06-06] MEDS: [UNRECOGNIZED DRUG - OTHER] PO SCH (08:33)
[2021-06-06] MEDS: Cholecalciferol (Vitamin D3) 25 MCG Tab PO SCH (08:35)
[2021-06-06] MEDS: Calcium Carbonate/Magnesium Oxide/Zinc Oxide Tab PO SCH (08:36)
[2021-06-06 13:42] VITALS: BP 140/60; PULSE 61
--- NOTE | 2021-06-06 14:24 | DISCH ---
ADMISSION DIAGNOSIS: Postoperative right knee pain. DISCHARGE DIAGNOSIS: 1. POSTOPERATIVE RIGHT KNEE PAIN. 2. CHRONIC ATRIAL FIBRILLATION WITH ANTICOAGULATION. 3. HYPERTENSION. 4. DEPRESSION. 5. CHRONIC GASTROESOPHAGEAL REFLUX DISEASE. HISTORY: The patient is a 71-year-old who had a partial revision of a knee replacement. I believe she had her patellar cap and a tibial pad replaced. This was done by Dr. Spencer at [facility], without any complication. She stayed overnight and was discharged the next day with pretty good pain control postoperatively and no postop complications. By the time she got home from her drive the next day, she started having more severe right knee pain, was unable to do the exercises she had been doing before and she presented to the emergency room for evaluation. She had no issues with her incision, increase in swelling, erythema or drainage from the wound. Emergency Room provider Haylie Joseph NP, evaluated the patient. Normal x-rays were reported and she was admitted for pain control. HOSPITAL COURSE: The patient was given IV Toradol while here and for the most part, she got wonderful relief. She has had no vital sign irregularities. The knee itself looks great. There is minimal swelling. There is no calor, erythema, and no drainage from the wound. I did discuss with Dr. Spencer the patient's presentation and he feels the pain likely came on quickly due to the nerve block wearing off the day after the surgery. I did explain this to the patient at length. We are going to keep her on oxycodone, told her to stay ahead of the pain using a 5 mg pill every 4-6 hours and she has followup with Ortho on the 16 of July. COMPLICATIONS: During her stay were none. CONSULTATIONS: PT. DISPOSITION: Discharged home. MEENA/AGUS /[id number]
[2021-06-07] MEDS ORDERED: Beta-Carotene (Vitamin A) w/Vitamin C & E plus Minerals Tab PO SCH (08:00)
== END 2021-06-06 15:10 | disposition home health service (06) ==
LOC: CC.ED 07:42 → CC.MS 13:00 → UNDOADMOB 13:00 → CC.MS 15:10
PROVIDERS: ADMIT Nurse Practitioner Family; ATTEND Family Medicine
DX: G89.18 Other acute postprocedural pain (principal); M25.561 Pain in right knee; R26.9 Unspecified abnormalities of gait and mobility; I48.91 Unspecified atrial fibrillation; E78.00 Pure hypercholesterolemia, unspecified; I10 Essential (primary) hypertension; F32.A Depression, unspecified; K21.9 Gastro-esophageal reflux disease without esophagitis; E55.9 Vitamin D deficiency, unspecified; Z86.73 Personal history of transient ischemic attack (TIA), and cerebral infarction without residual deficits; Z98.890 Other specified postprocedural states; Z79.899 Other long term (current) drug therapy; Z79.82 Long term (current) use of aspirin
CPT/HCPCS: 36415; 73560-RT; 85025; 96372; 96374; 96376; 97016-GP; 97110-GP; 97161-GP; 99284; A9270-GY; G0378; J1885

== ENCOUNTER 2021-06-27 17:24 | Emergency (ER) | payer MEDICARE, BC ==
--- NOTE | 2021-06-27 17:38 | EDM.PDOC ---
ED HPI GENERAL MEDICAL PROBLEM - General Chief Complaint: General Stated Complaint: Chest Tightness Time Seen by Provider: 06/27/21 17:25 Source of Information: Reports: Patient History Limitations: Reports: No Limitations - History of Present Illness INITIAL COMMENTS - FREE TEXT/NARRATIVE: This is a [id number]-old female patient that presents to the emergency department with complaints of chest tightness. Patient states that she began developing some tightness in her chest that started about noon today. Reports that she was recently seen in the emergency department last Sunday for atrial fibrillation. Has been following with fixer boarding room and has had an ablation as well as cardioversion. States that she is not always in atrial fibrillation and does tend to go in and out intermittently. Patient denies any recent illness. Denies any nausea, vomiting, diaphoresis, shortness of breath at this time. She states the pain radiates to her back. She reports taking her medications as prescribed and was started on flecainide by her fixer boarding room due to the ongoing issues with her atrial fibrillation. Onset: Today Onset Date: 06/27/21 Onset Time: 12:00 Location: Reports: Chest Quality: Reports: Other (Tightness) Improves with: Reports: None Worsens with: Reports: None Associated Symptoms: Denies: Cough, Diaphoresis, Fever/Chills, Nausea/Vomiting, Shortness of Breath mid chest Pain Score (Numeric/FACES): 6 - Related Data Allergies Allergy/AdvReac Type Severity Reaction Status Date / Time No Known Allergies Allergy Verified 06/27/21 17:35 Home Meds: Home Meds Metoprolol Tartrate [Lopressor] 25 mg PO BID 08/04/13 [History] Pantoprazole Sodium 40 mg PO DAILY 08/04/13 [History] buPROPion [buPROPion XL] 150 mg PO BEDTIME 08/04/13 [History] Aspirin [Low Dose Aspirin EC] 81 mg PO BEDTIME 04/26/14 [History] Cholecalciferol (Vitamin D3) [Vitamin D3] 2,000 unit PO BID 04/26/14 [History] traZODone HCl [Trazodone HCl] 50 mg PO BEDTIME 04/26/14 [History] Apixaban [Eliquis] 5 mg PO BID 01/16/18 [History] Calcium Carb/D3/Magnesium/Zinc [Benoit Mag Zinc + D3] 1 each PO DAILY 01/16/18 [History] traMADol HCl [Ultram] 50 - 100 mg PO Q6H PRN 01/16/18 [History] Clotrimazole/Betamethasone Dip [Lotrisone Cream] 1 applic TP BID PRN 04/23/19 [History] Diclofenac Sodium [Voltaren 1% Gel] 1 applic TP QID PRN 04/23/19 [History] Exemestane 25 mg PO DAILY 04/23/19 [History] Acetaminophen 650 mg PO Q6H PRN 06/04/21 [History] Flecainide [Tambocor] 50 mg PO Q12H 06/04/21 [History] Lutein/Zeaxanthin [Lutein-Zeaxanthin 20-1 mg Sfgl] 1 cap PO DAILY 06/04/21 [History] PARoxetine [Paxil] 20 mg PO DAILY 06/04/21 [History] atorvaSTATin [Lipitor] 10 mg PO BEDTIME 06/04/21 [History] Past Medical History Cardiovascular History: Reports: Afib, Blood Clots/VTE/DVT, High Cholesterol, Hypertension Gastrointestinal History: Reports: GERD PRINT COLOR MATCHER History: Reports: Other PRINT COLOR MATCHER History: YEAST INF Musculoskeletal History: Reports: Arthritis Neurological History: Reports: CVA Psychiatric History: Reports: Anxiety, Depression Endocrine/Metabolic History: Reports: Vitamin D Deficiency Hematologic History: Reports: B12 Deficiency Oncologic (Cancer) History: Reports: Breast - Infectious Disease History Infectious Disease History: Reports: Other (See Below) Other Infectious Disease History: Staph infection in hand - Past Surgical History HEENT Surgical History: Reports: Naso-Sinus Surgery Female Surgical History: Reports: Section Musculoskeletal Surgical History: Reports: Knee Replacement Oncologic Surgical History: Reports: Biopsy of Breast, Lumpectomy Social & Family History - Family History Family Medical History: No Pertinent Family History - Caffeine Use Caffeine Use: Reports: Coffee - Living Situation & Occupation Living situation: Reports: , with Spouse Occupation: Employed ED ROS GENERAL - Review of Systems Review Of Systems: See Below Constitutional: Denies: Fever, Chills, Malaise, Weakness HEENT: Reports: No Symptoms Respiratory: Denies: Shortness of Breath, Wheezing, Cough Cardiovascular: Reports: Chest Pain (Tightness and pressure) Endocrine: Reports: No Symptoms GI/Abdominal: Denies: Abdominal Pain, Nausea, Vomiting : Reports: No Symptoms Musculoskeletal: Reports: No Symptoms Skin: Denies: Cyanosis, Mottled Neurological: Denies: Confusion, Dizziness, Headache Psychiatric: Reports: No Symptoms Hematologic/Lymphatic: Reports: No Symptoms Immunologic: Reports: No Symptoms ED EXAM, GENERAL - Physical Exam Exam: See Below Exam Limited By: No Limitations General Appearance: Alert, WD/WN, Mild Distress Ears: Normal External Exam, Hearing Grossly Normal Nose: Normal Inspection, No Blood Throat/Mouth: Normal Inspection, Normal Lips, Normal Voice, No Airway Compromise Head: Atraumatic, Normocephalic Neck: Normal Inspection, Supple, Non-Tender Respiratory/Chest: No Respiratory Distress, Lungs Clear, Normal Breath Sounds Cardiovascular: Normal Peripheral Pulses, No Edema, Irregularly Irregular. No: Tachycardia GI/Abdominal: Normal Bowel Sounds, Soft, Non-Tender, No Distention (Female) Exam: Deferred Rectal (Female) Exam: Deferred Extremities: No Pedal Edema Neurological: Alert, Oriented, Normal Cognition Psychiatric: Normal Affect, Normal Mood Skin Exam: Warm, Dry, Intact Lymphatic: No Adenopathy #1 Interpretation EKG Date: 06/27/21 Time: 17:27 Rhythm: A-Fib Rate (Beats/Min): 97 Comparison: NA - No Prior EKG Course - Vital Signs Last Recorded V/S: Last Vital Signs Temp 97.8 F 06/27/21 17:32 Pulse 91 06/27/21 18:46 Resp 18 06/27/21 18:46 BP 129/74 06/27/21 18:46 Pulse Ox 97 06/27/21 18:46 - Orders/Labs/Meds Orders: Active Orders 24 hr Category Date Time Status Cardiac Monitoring [RC] . DIRECTED Care 06/27/21 18:37 Active Chest 2V [CR] Stat Exams 06/27/21 17:30 Taken PE Chest [Ang Chest] [CT] Stat Exams 06/27/21 18:09 Taken Labs: Laboratory Tests 06/27/21 06/27/21 06/27/21 Range/Units 17:40 17:40 17:40 WBC 5.1 (4.0-11.0) 10^3/uL RBC 3.88 L (4.00-5.50) x10^6/uL Hgb 11.7 L (12.0-16.0) g/dL Hct 35.4 L (37.0-47.0) % MCV 91.2 (83.0-97.0) fL MCH 30.2 (27.0-32.0) pg MCHC 33.1 (32.0-36.0) g/dL RDW Coeff of Mick 12.9 (11.0-15.0) % Plt Count 208 (150-400) 10^3/uL Immature Gran % (Auto) 0.2 (0.0-4.9) % Neut % (Auto) 52.9 (41-71) % Lymph % (Auto) 33.9 (24-44) % Sullivan % (Auto) 8.7 (0-10) % Eos % (Auto) 3.9 (0-6) % Baso % (Auto) 0.4 (0-1) % Neut # (Auto) 2.68 (1.80-8.00) x10^3/uL Lymph # (Auto) 1.72 (0.60-5.00) 10^3/uL Sullivan # (Auto) 0.44 (0.00-1.50) 10^3/uL Eos # (Auto) 0.20 (0.00-1.50) 10^3/uL Baso # (Auto) 0.02 (0.00-0.50) 10^3/uL Immature Gran # (Auto) 0.01 (0.00-0.49) 10^3/uL D-Dimer, Quantitative 3.44 H (0.00-0.50) Sodium 137 (136-145) mEq/L Potassium 4.3 (3.5-5.0) mEq/L Chloride 100 (98-106) mEq/L Carbon Dioxide 28 (21-32) mmol/L BUN 18 (7-18) mg/dL Creatinine 1.0 (0.6-1.0) mg/dL Est Cr Clr Drug Dosing 41.40 mL/min Estimated GFR (MDRD) 55 L (>=60) mL/min Glucose 105 H (75-99) mg/dL Calcium 9.1 (8.4-10.1) mg/dL Total Bilirubin 0.4 (0.0-1.0) mg/dL AST 19 (15-37) U/L ALT 33 (12-78) U/L Alkaline Phosphatase 131 H (46-116) U/L Troponin I High Sens 5.2 (<=51) pg/mL C-Reactive Protein < 0.2 L (0.2-0.8) mg/dL Total Protein 6.8 (6.4-8.2) g/dL Albumin 3.7 (3.4-5.0) g/dL 06/27/21 Range/Units 20:30 WBC (4.0-11.0) 10^3/uL RBC (4.00-5.50) x10^6/uL Hgb (12.0-16.0) g/dL Hct (37.0-47.0) % MCV (83.0-97.0) fL MCH (27.0-32.0) pg MCHC (32.0-36.0) g/dL RDW Coeff of Mick (11.0-15.0) % Plt Count (150-400) 10^3/uL Immature Gran % (Auto) (0.0-4.9) % Neut % (Auto) (41-71) % Lymph % (Auto) (24-44) % Sullivan % (Auto) (0-10) % Eos % (Auto) (0-6) % Baso % (Auto) (0-1) % Neut # (Auto) (1.80-8.00) x10^3/uL Lymph # (Auto) (0.60-5.00) 10^3/uL Sullivan # (Auto) (0.00-1.50) 10^3/uL Eos # (Auto) (0.00-1.50) 10^3/uL Baso # (Auto) (0.00-0.50) 10^3/uL Immature Gran # (Auto) (0.00-0.49) 10^3/uL D-Dimer, Quantitative (0.00-0.50) Sodium (136-145) mEq/L Potassium (3.5-5.0) mEq/L Chloride (98-106) mEq/L Carbon Dioxide (21-32) mmol/L BUN (7-18) mg/dL Creatinine (0.6-1.0) mg/dL Est Cr Clr Drug Dosing mL/min Estimated GFR (MDRD) (>=60) mL/min Glucose (75-99) mg/dL Calcium (8.4-10.1) mg/dL Total Bilirubin (0.0-1.0) mg/dL AST (15-37) U/L ALT (12-78) U/L Alkaline Phosphatase (46-116) U/L Troponin I High Sens 7.1 (<=51) pg/mL C-Reactive Protein (0.2-0.8) mg/dL Total Protein (6.4-8.2) g/dL Albumin (3.4-5.0) g/dL Meds: Medications Discontinued Medications Generic Name Dose Route Start Last Admin Trade Name Freq PRN Reason Stop Dose Admin Iopamidol 100 ml 06/27/21 18:28 06/27/21 19:03 Iopamidol 755 Mg/Ml 100 Ml Bottle IVPUSH 06/27/21 18:29 100 ml ONETIME ONE Administration - Re-Assessments/Exams Free Text/Narrative Re-Assessment/Exam: This is a 71-year-old female that presented with chest tightness and pressure with radiation into her back. CBC, CMP, CRP, troponin, and D-dimer were ordered. An EKG was obtained showing atrial fibrillation at a rate of 97. CBC and CMP were unremarkable. CRP negative. Troponin high-sensitivity is 5.2. D- dimer elevated at 3.44. A 2 view chest x-ray was also completed and I personally reviewed the chest x-ray and see no acute findings and x-ray and it is very similar to an x-ray of the chest completed in May. Patient has continued to have chest tightness and remains in atrial fibrillation at a controlled rate between 80 and 100. A CTA chest has been ordered to rule out pulmonary embolism. We will plan to complete a repeat troponin at about 830pm. 06/27/21 18:11 CTA chest completed and radiologist impression reads no evidence of PE and no ac kayode findings in the chest. There is an incidental 1.5 cm splenic artery aneurysm mentioned in the report. Awaiting repeat troponin and will consult with [facility] in [place] upon completion. Patient reports the tightness in her chest has improved. 06/27/21 20:04 The 3-hour repeat on the troponin was 7.1. [facility] cardiology was called and spoke with Dr. Mckenna the on-call fixer boarding room. Dr. Mckenna was updated with patient's lab, EKG, and CTA results. The patient had called the construction project coordinator office earlier in the day and spoke with Dr. Mtz's nurse practitioner. Upon this consult with Dr. Mckenna she stated that she would communicate our findings today with Dr. Mtz's office. She also suggested do not change any medications at this time and allow Dr. Mtz to evaluate the patient and make those changes. Discussed these findings and our conversation with the fixer boarding room with the patient. Patient should receive a call from Dr. Mtz's office sometime tomorrow morning. If she has not heard from Dr. Mtz's office she is to call them tomorrow afternoon. Patient can follow-up with her primary care provider regarding the incidental 1.5 cm splenic artery aneurysm noted on the CTA of her chest. Patient should continue all medication until hearing from the construction project coordinator or cardiology at [facility]. Patient was instructed to call or return to the emergency department with any questions or worsening symptoms. 06/27/21 21:15 Departure - Departure Time of Disposition: 21:14 Disposition: Home, Self-Care 01 Condition: Fair Clinical Impression: Chest pain in adult Atrial fibrillation Qualifiers: Atrial fibrillation type: paroxysmal Qualified Code(s): I48.0 - Paroxysmal atrial fibrillation - Discharge Information *PRESCRIPTION DRUG MONITORING PROGRAM REVIEWED*: Not Applicable *COPY OF PRESCRIPTION DRUG MONITORING REPORT IN PATIENT GIGI: Not Applicable Instructions: Nonspecific Chest Pain, Adult, Atrial Fibrillation Referrals: Suzy rCuz NP [Primary Care Provider] - Forms: ED Department Discharge Additional Instructions: 1. If you have not been contacted by Dr. Mtz's office by tomorrow afternoon please give them a call. 2. Continue all prescribed medications until you speak with [facility]. 3. Follow-up with primary care to monitor the incidental finding of splenic artery aneurysm found on the CT of your chest. 4. Call or return to the ER if you have any questions, concerns, or your symptoms worsen. Sepsis Event Note (ED) - Focused Exam Vital Signs: Vital Signs Temp Pulse Resp BP Pulse Ox 06/27/21 18:46 91 18 129/74 97 06/27/21 17:32 97.8 F 98 18 136/80 98 - My Orders Last 24 Hours: My Active Orders 06/27/21 17:30 Chest 2V [CR] Stat 06/27/21 18:09 PE Chest [Ang Chest] [CT] Stat 06/27/21 18:37 Cardiac Monitoring [RC] . DIRECTED - Assessment/Plan Last 24 Hours: My Active Orders 06/27/21 17:30 Chest 2V [CR] Stat 06/27/21 18:09 PE Chest [Ang Chest] [CT] Stat 06/27/21 18:37 Cardiac Monitoring [RC] . DIRECTED
[2021-06-27 17:59] LABS: CHLORIDE,CL 100 mEq/L (98-106); SODIUM,NA 137 mEq/L (136-145)
[2021-06-27 18:46] VITALS: BP 129/74; PULSE 91
[2021-06-27] MEDS: Iopamidol 755 Mg/ML 100 ML Bottle IVPUSH ONE (19:03)
== END 2021-06-27 21:39 | disposition home or self-care (01) ==
LOC: CC.ED 17:24
DX: R07.89 Other chest pain (principal); I48.0 Paroxysmal atrial fibrillation; E78.00 Pure hypercholesterolemia, unspecified; I10 Essential (primary) hypertension; Z86.73 Personal history of transient ischemic attack (TIA), and cerebral infarction without residual deficits; Z79.82 Long term (current) use of aspirin; Z79.01 Long term (current) use of anticoagulants; Z79.899 Other long term (current) drug therapy
CPT/HCPCS: 36415; 71046; 71275; 80053; 84484; 85025; 85379; 86140; 93005; 99285-25; Q9967

== ENCOUNTER 2021-12-13 13:44 | Observation (INO) | payer MEDICARE, BC ==
[2021-12-13 14:18] LABS: CHLORIDE,CL 102 mEq/L (98-106); ESTIMATED GFR 69 mL/min (>=60); SODIUM,NA 137 mEq/L (136-145)
[2021-12-13] MEDS ORDERED: Acetaminophen 325 MG Tab PO PRN (15:20)
[2021-12-13] MEDS ORDERED: FLECAINIDE 50 MG PO SCH (15:30)
[2021-12-13] MEDS ORDERED: Metoprolol Tartrate 25 MG Tab PO SCH (15:30)
[2021-12-13] MEDS ORDERED: Sodium Chloride 0.9% 10 ML Syringe FLUSH PRN (15:35)
[2021-12-13] MEDS ORDERED: Ondansetron 4 MG Tab.DIS PO PRN (15:35)
[2021-12-13] MEDS ORDERED: Furosemide 40 MG/4 ML VIAL IVPUSH ONE (16:00)
[2021-12-13] MEDS ORDERED: Metoprolol Tartrate 50 MG Tab**OWN MED PO SCH (18:00)
[2021-12-13] MEDS: APIXABAN 5 MG PO SCH (19:00)
[2021-12-13] MEDS ORDERED: traZODone 50 MG Tab**OWN MED PO SCH (20:00)
[2021-12-13] MEDS ORDERED: Aspirin 81 MG Tab.EC PO SCH (20:00)
[2021-12-13] MEDS ORDERED: BUPROPION 150 MG PO SCH (20:00)
[2021-12-13] MEDS ORDERED: atorvaSTATin 10 MG Tab**OWN MED PO SCH (20:00)
[2021-12-14] MEDS ORDERED: FLECAINIDE 50 MG PO SCH (08:00)
[2021-12-14] MEDS ORDERED: EXEMESTANE 25 MG PO SCH (08:00)
[2021-12-14] MEDS ORDERED: PAROXETINE 20 MG PO SCH (08:00)
[2021-12-14] MEDS ORDERED: Pantoprazole 40 MG Tab.CR**OWN MED PO SCH (08:00)
[2021-12-14] MEDS ORDERED: Metoprolol Tartrate 50 MG Tab**OWN MED PO SCH (08:00)
[2021-12-14] MEDS ORDERED: Furosemide 40 MG/4 ML VIAL IVPUSH ONE (08:01)
[2021-12-14] MEDS: APIXABAN 5 MG PO SCH (08:07)
[2021-12-14] MEDS ORDERED: LORazepam 0.5 MG Tab PO PRN (14:00)
[2021-12-14 15:31] VITALS: BP 115/78; PULSE 123
== END 2021-12-14 15:30 ==
LOC: CC.FCMC 13:44 → CC.MS 13:44 → UNDOADMOB 14:53 → CC.MS 15:35
PROVIDERS: ADMIT Family Medicine; ATTEND Nurse Practitioner Family
DX: I48.91 Unspecified atrial fibrillation (principal); I11.0 Hypertensive heart disease with heart failure; I50.9 Heart failure, unspecified; K21.9 Gastro-esophageal reflux disease without esophagitis; E78.00 Pure hypercholesterolemia, unspecified; F41.9 Anxiety disorder, unspecified; F32.A Depression, unspecified; E55.9 Vitamin D deficiency, unspecified; E53.9 Vitamin B deficiency, unspecified; Z86.73 Personal history of transient ischemic attack (TIA), and cerebral infarction without residual deficits; Z79.899 Other long term (current) drug therapy; Z79.82 Long term (current) use of aspirin; Z98.890 Other specified postprocedural states
CPT/HCPCS: 36415; 71046; 80053; 81003; 83880; 84443; 84484; 85025; 93005; 96374; 96376; 99217; 99220; A9270-GY; G0378; J1940

== ENCOUNTER 2024-10-09 10:39 | Observation (INO) | payer MEDICARE, BC ==
[2024-10-09 11:19] LABS: BASOPHILS ABSOLUTE AUTO 0.03 10^3/uL (0.00-0.50); BASOPHILS PERCENT AUTO 2.1 % (0-1); EOSINOPHILS ABSOLUTE AUTO 0.02 10^3/uL (0.00-1.50); EOSINOPHILS PERCENT AUTO 1.4 % (0-6); HEMATOCRIT 34.8 % (37.0-47.0); HEMOGLOBIN 11.7 g/dL (12.0-16.0); LYMPHOCYTES ABSOLUTE AUTO 0.63 10^3/uL (0.60-5.00); LYMPHOCYTES PERCENT AUTO 43.4 % (24-44); MEAN CORPUSCULAR HGB CONC 33.6 g/dL (32.0-36.0); MEAN CORPUSCULAR VOLUME 92.3 fL (83.0-97.0); MONOCYTES ABSOLUTE AUTO 0.29 10^3/uL (0.00-1.50); NEUTROPHILS ABSOLUTE AUTO 0.48 x10^3/uL (1.80-8.00); NEUTROPHILS PERCENT AUTO 33.1 % (41-71); PLATELET COUNT,PLT 110 10^3/uL (150-400); RED BLOOD CELL COUNT 3.77 x10^6/uL (4.00-5.50)
[2024-10-09 11:20] LABS: WHITE BLOOD CELL COUNT,WBC 1.5 10^3/uL (4.0-11.0)
[2024-10-09 11:34] LABS: ALBUMIN 3.1 g/dL (3.4-5.0); BILIRUBIN TOTAL 0.4 mg/dL (0.0-1.0); CALCIUM 8.9 mg/dL (8.4-10.1); CREATININE 0.8 mg/dL (0.6-1.0); EST CRCL DRUG DOSING (CG) 51.81 mL/min; POTASSIUM,K 4.1 mEq/L (3.5-5.0); PROTEIN TOTAL,TP 6.2 g/dL (6.4-8.2)
[2024-10-09] MEDS: Diphtheria,Pertussis(Acell),Tetanus Vaccine 0.5 ML Syringe IM ONE (12:17)
[2024-10-09] MEDS: Lidocaine 1% 5 ML VIAL INJECT ONE (12:17)
[2024-10-09 13:29] LABS: APPEARANCE,URINE CLEAR (CLEAR); BILIRUBIN,URINE NEGATIVE (NEGATIVE); COLOR,URINE YELLOW (YELLOW); GLUCOSE,URINE NEGATIVE (NEGATIVE); KETONES,URINE NEGATIVE (NEGATIVE); LEUKOCYTE ESTERASE,URINE NEGATIVE (NEGATIVE); NITRITE,URINE NEGATIVE (NEGATIVE); OCCULT BLOOD,URINE NEGATIVE (NEGATIVE); PH,URINE 6.5 (4.5-8.0); PROTEIN,URINE NEGATIVE (NEGATIVE); UROBILINOGEN,URINE 0.2 EU/dL (0.2-1.0)
[2024-10-09] MEDS: Bacitracin Oint 1 GM U/D Packet TOP ONE (13:41)
[2024-10-09] MEDS: HYDROmorphone 0.5 MG/0.5 ML Syringe IVPUSH ONE (14:26)
[2024-10-09] MEDS ORDERED: Acetaminophen 325 MG Tab PO PRN (17:07)
[2024-10-09] MEDS ORDERED: Acetaminophen 650 MG Supp RECTAL PRN (17:07)
[2024-10-09] MEDS ORDERED: Sodium Chloride 0.9% 10 ML Syringe FLUSH PRN (17:07)
[2024-10-09] MEDS ORDERED: Ondansetron 4 MG/2 ML SDV IV PRN (17:07)
[2024-10-09] MEDS: traMADol 50 MG Tab PO PRN (18:03)
[2024-10-09] MEDS: Apixaban 5 MG Tab PO SCH (19:16)
[2024-10-09] MEDS: Sotalol 80 MG Tab PO SCH (19:16)
[2024-10-09] MEDS: Cholecalciferol (Vitamin D3) 25 MCG Tab PO SCH (19:16)
[2024-10-09] MEDS: traZODone 50 MG Tab PO SCH (19:16)
[2024-10-09] MEDS: buPROPion 150 MG Tab.ER PO SCH (19:16)
[2024-10-09] MEDS: Flecainide 100 MG Tab PO SCH (19:17)
[2024-10-09] MEDS ORDERED: Sennosides/Docusate Sodium 50-8.6 MG Tab PO SCH (20:00)
[2024-10-09] MEDS ORDERED: atorvaSTATin 10 MG Tab PO SCH (20:00)
[2024-10-09] MEDS ORDERED: Metoprolol Tartrate 50 MG Tab PO SCH (20:00)
[2024-10-09] MEDS ORDERED: Aspirin 81 MG Tab.EC PO SCH (20:00)
[2024-10-09] MEDS: HYDROmorphone 0.5 MG/0.5 ML Syringe IVPUSH PRN (21:16)
[2024-10-10] MEDS: Acetaminophen/HYDROcodone 325-5 MG Tab PO PRN (05:28)
[2024-10-10] MEDS: Pantoprazole 40 MG Tab.CR PO SCH (06:01)
[2024-10-10 07:35] LABS: CALCIUM 8.7 mg/dL (8.4-10.1); CREATININE 0.8 mg/dL (0.6-1.0); EST CRCL DRUG DOSING (CG) 51.81 mL/min; POTASSIUM,K 4.2 mEq/L (3.5-5.0)
[2024-10-10 07:45] LABS: BASOPHILS ABSOLUTE AUTO 0.01 10^3/uL (0.00-0.50); BASOPHILS PERCENT AUTO 0.8 % (0-1); EOSINOPHILS ABSOLUTE AUTO 0.01 10^3/uL (0.00-1.50); EOSINOPHILS PERCENT AUTO 0.8 % (0-6); HEMOGLOBIN 10.9 g/dL (12.0-16.0); IMMATURE GRAN ABSOLUTE AUTO 0.01 10^3/uL (0.00-0.49); IMMATURE GRAN PERCENT AUTO 0.8 % (0.0-4.9); LYMPHOCYTES ABSOLUTE AUTO 0.45 10^3/uL (0.60-5.00); MEAN CORPUSCULAR HEMOGLOBIN 31.8 pg (27.0-32.0); MEAN CORPUSCULAR HGB CONC 34.1 g/dL (32.0-36.0); MEAN CORPUSCULAR VOLUME 93.3 fL (83.0-97.0); MONOCYTES ABSOLUTE AUTO 0.28 10^3/uL (0.00-1.50); MONOCYTES PERCENT AUTO 22.4 % (0-10); NEUTROPHILS ABSOLUTE AUTO 0.49 x10^3/uL (1.80-8.00); NEUTROPHILS PERCENT AUTO 39.2 % (41-71); PLATELET COUNT,PLT 109 10^3/uL (150-400); RED BLOOD CELL COUNT 3.43 x10^6/uL (4.00-5.50)
[2024-10-10 07:47] LABS: WHITE BLOOD CELL COUNT,WBC 1.3 10^3/uL (4.0-11.0)
[2024-10-10] MEDS ORDERED: PARoxetine 20 MG Tab PO SCH (08:00)
[2024-10-10] MEDS ORDERED: EXEMESTANE PO SCH (08:00)
[2024-10-10] MEDS ORDERED: Calcium Carbonate/Vitamin D3 1250 MG-5 MCG Tab PO SCH (08:00)
[2024-10-10 08:10] VITALS: BP 124/76; PULSE 69
[2024-10-10] MEDS: ZEAXANTHIN PO SCH (08:52)
[2024-10-10] MEDS: LUTEIN PO SCH (08:52)
[2024-10-10] MEDS: Ondansetron 4 MG Tab.DIS PO PRN (10:11)
== END 2024-10-10 11:30 | disposition home or self-care (01) ==
LOC: CC.ED 10:39 → UNDOADMOB 12:53 → CC.MS 12:53
PROVIDERS: ADMIT Nurse Practitioner Family; ATTEND Nurse Practitioner Family
DX: S61.212A Laceration without foreign body of right middle finger without damage to nail, initial encounter (principal); S00.83XA Contusion of other part of head, initial encounter; Z79.01 Long term (current) use of anticoagulants; Z79.82 Long term (current) use of aspirin; Z79.899 Other long term (current) drug therapy; W18.30XA Fall on same level, unspecified, initial encounter
CPT/HCPCS: 36415; 70450; 71045; 72125; 73030-RT; 73130-RT; 80048; 80053; 81003; 85025; 90715; 93005; 93010; 97161-GP; 99223; 99239; A9270-GY; J2003

== ENCOUNTER 2025-04-03 11:36 | Day surgery (SDC) | payer MEDICARE, BC ==
[2025-04-03] MEDS: Lactated Ringers 1,000 ML IV SCH (11:58)
[2025-04-03] MEDS ORDERED: fentaNYL 50 MCG/ML SDV ONE ×2 (12:14)
[2025-04-03] MEDS ORDERED: Propofol 200 MG/20 ML SDV ONE (12:14)
[2025-04-03] MEDS ORDERED: Ketamine 200 MG/20 ML MDV ONE (12:14)
[2025-04-03 13:38] VITALS: BP 149/70; PULSE 70
== END 2025-04-03 13:20 | disposition home or self-care (01) ==
LOC: CC.SDS 11:36
PROVIDERS: ATTEND Family Medicine
DX: K29.50 Unspecified chronic gastritis without bleeding (principal); K31.7 Polyp of stomach and duodenum; I10 Essential (primary) hypertension; K21.9 Gastro-esophageal reflux disease without esophagitis; I48.91 Unspecified atrial fibrillation; F41.9 Anxiety disorder, unspecified; Z79.899 Other long term (current) drug therapy
CPT/HCPCS: 00731; 87077; 88305; J2003; J2704; J3010; J3490; J7120